=== PATIENT | female | born 1975 | race Caucasian/White ===

== ENCOUNTER 2017-10-14 12:28 | Emergency (ER) | payer OTHER ==
[2017-10-14 13:42] LABS: APPEARANCE, URINE CLOUDY (CLEAR); BACTERIA, URINE AUTO NEGATIVE (NEGATIVE); BILIRUBIN, URINE AUTO NEGATIVE (NEGATIVE); BLOOD, URINE BLOOD 3+ (NEGATIVE); CALCIUM OXALATE CRYSTALS SMALL; COLOR, URINE YELLOW (YELLOW); GLUCOSE, URINE (UA) AUTO NEGATIVE (NEGATIVE); KETONE, URINE AUTO 1+ mg/dL (NEGATIVE); LEUKOCYTE ESTERASE, URINE AUTO NEGATIVE (NEGATIVE); MUCUS, URINE LARGE (NEGATIVE); NITRITE, URINE AUTO NEGATIVE (NEGATIVE); PROTEIN, URINE AUTO 1+ mg/dL (NEGATIVE); RBC, URINE AUTO TNTC /HPF (0-3); SPECIFIC GRAVITY URINE AUTO 1.026 (1.002-1.035); SQUAMOUS EPITHELIAL CELL UR AU 5 /HPF (0-6); WBC, URINE AUTO 12 /HPF (0-3)
[2017-10-14] MEDS: ONDANSETRON 4MG/2ML VIAL (J2405) IV (13:43)
[2017-10-14] MEDS: KETOROLAC 30 MG/ML VIAL (J1885) IV (13:44)
[2017-10-14] MEDS: NS 1,000 ML IV (13:44)
[2017-10-14 13:51] LABS: HEMATOCRIT 45.6 % (36.0-47.0); HEMOGLOBIN 14.6 g/dl (12.0-15.5); MEAN CORPUSCULAR HEMOGLOBIN 29.6 pg (27.0-33.0); MEAN CORPUSCULAR VOLUME 92.3 fl (80.0-96.0); PLATELET COUNT, AUTOMATED 204 10^3/uL (150-450); RED BLOOD COUNT 4.94 10^6/uL (4.00-5.40); RED CELL DISTRIBUTION WIDTH 14.4 % (11.5-14.5); WHITE BLOOD COUNT 10.5 10^3/uL (4.0-10.0)
[2017-10-14 14:16] LABS: CONTROL LINE HCG INT CTR LINE PRESENT; HCG, SERUM QUALITATIVE NEGATIVE (NEGATIVE)
[2017-10-14 14:25] LABS: ALBUMIN/GLOBULIN RATIO 0.98 (1.00-1.93); ALKALINE PHOSPHATASE 67 U/L (45-117); ALT/SGPT 21 U/L (12-78); ANION GAP 10 MEQ/L (8-16); AST/SGOT 12 U/L (7-37); BILIRUBIN,DIRECT 0.2 MG/DL (0.0-0.2); BILIRUBIN,TOTAL 0.9 MG/DL (0.2-1.0); BLOOD UREA NITROGEN 14 MG/DL (7-18); CARBON DIOXIDE LEVEL 25 MEQ/L (21-32); CHLORIDE LEVEL 109 MEQ/L (98-107); CREATININE FOR GFR 0.99 MG/DL (0.55-1.30); GLOMERULAR FILTRATION RATE > 60.0 (>58); GLUCOSE, FASTING 139 MG/DL (70-100); SODIUM LEVEL 144 MEQ/L (136-145); TOTAL PROTEIN 8.1 GM/DL (6.4-8.2)
== END 2017-10-14 15:31 | disposition home or self-care (01) ==
LOC: M ED 12:28
DX: R10.31 Right lower quadrant pain (principal); Z87.442 Personal history of urinary calculi; Z88.0 Allergy status to penicillin
CPT/HCPCS: J2405

== ENCOUNTER 2018-01-29 20:47 | Emergency (ER) | payer OTHER, SELFPAY ==
[~2018-01-29] VITALS: Ht 167.6 cm; Wt 86.4 kg
[2018-01-29] MEDS ORDERED: BACTRIM 160MG/800MG DS TAB PO ONE (22:15)
[2018-01-29] MEDS ORDERED: NS 1,000 ML IV SCH (22:15)
[2018-01-29] MEDS ORDERED: KETOROLAC 30 MG/ML VIAL (J1885) IV ONE (22:15)
[2018-01-29] MEDS ORDERED: METOCLOPRAMIDE INJ 10MG/2ML VIAL (J2765) IV ONE (22:15)
[2018-01-29 22:38] LABS: BASO % 0.4 % (0.0-1.0); EOS # 0.3 10^3/uL (0.0-0.50); EOS % 2.6 % (0.0-3.0); HEMATOCRIT 42.1 % (36.0-47.0); HEMOGLOBIN 13.3 g/dl (12.0-15.5); LYMPH # 4.5 10^3/uL (1.5-4.5); LYMPH % 40.6 % (24.0-44.0); MEAN CORPUSCULAR HEMOGLOBIN 28.5 pg (27.0-33.0); MEAN CORPUSCULAR HGB CONC 31.6 g/dl (32.0-36.5); MEAN CORPUSCULAR VOLUME 90.1 fl (80.0-96.0); MONO # 0.7 10^3/uL (0.0-0.8); MONO % 6.8 % (0.0-5.0); NEUTROPHILS # 5.4 10^3/uL (1.8-7.7); NEUTROPHILS % 49.3 % (36.0-66.0); PLATELET COUNT, AUTOMATED 259 10^3/uL (150-450); RED BLOOD COUNT 4.67 10^6/uL (4.00-5.40)
[2018-01-29 23:08] LABS: BLOOD UREA NITROGEN 13 MG/DL (7-18); C REACTIVE PROTEIN QUANTITATIV < 0.30 MG/DL (0.00-0.30); CALCIUM LEVEL 8.5 MG/DL (8.5-10.1); CARBON DIOXIDE LEVEL 27 MEQ/L (21-32); CHLORIDE LEVEL 111 MEQ/L (98-107); CREATININE FOR GFR 0.66 MG/DL (0.55-1.30); GLOMERULAR FILTRATION RATE > 60.0 (>58); GLUCOSE, FASTING 117 MG/DL (70-100); POTASSIUM SERUM 3.8 MEQ/L (3.5-5.1); SODIUM LEVEL 145 MEQ/L (136-145)
[2018-01-29 23:37] LABS: ERYTHROCYTE SEDIMENTATION RATE 13 mm/hr (0-20)
[2018-01-29] MEDS ORDERED: BACT800T5 PO (23:48)
[2018-01-30 00:26] VITALS: BP 140/87
== END 2018-01-30 00:28 | disposition home or self-care (01) ==
LOC: M ED 20:47
DX: S31.809A Unspecified open wound of unspecified buttock, initial encounter (principal); R22.9 Localized swelling, mass and lump, unspecified; H00.011 Hordeolum externum right upper eyelid; X58.XXXA Exposure to other specified factors, initial encounter; Y92.9 Unspecified place or not applicable; Y93.9 Activity, unspecified; Y99.9 Unspecified external cause status; Z87.442 Personal history of urinary calculi; Z72.0 Tobacco use; Z88.0 Allergy status to penicillin
CPT/HCPCS: 80048; 85025; 85652; 86140; 87040; 96361; 96374; 96375; 99283; J1885; J2765

== ENCOUNTER 2018-04-02 16:49 | Emergency (ER) | payer SELFPAY ==
[~2018-04-02] VITALS: Ht 167.6 cm; Wt 90.9 kg
[~2018-04-02 16:49] MED LIST: BACT800T5 PO
[2018-04-02] MEDS ORDERED: IBUP-1022 PO (16:54)
[2018-04-02] MEDS ORDERED: MUCI120T PO (16:54)
[2018-04-02 17:23] VITALS: BP 120/68
[2018-04-02 17:44] LABS: INFLUENZA A AMPLIFICATION NEGATIVE (NEGATIVE); INFLUENZA B AMPLIFICATION NEGATIVE (NEGATIVE)
[2018-04-02] MEDS ORDERED: ZYRT10CA PO (17:44)
[2018-04-02] MEDS ORDERED: FLON1SPR NARES (17:44)
== END 2018-04-02 17:49 | disposition home or self-care (01) ==
LOC: M ED 16:49
DX: J30.9 Allergic rhinitis, unspecified (principal); Z72.0 Tobacco use; Z88.0 Allergy status to penicillin

== ENCOUNTER 2018-09-03 16:58 | Emergency (ER) | payer OTHER, SELFPAY ==
[~2018-09-03] VITALS: Ht 167.6 cm; Wt 86.4 kg
[~2018-09-03 16:58] MED LIST changes: +FLON1SPR NARES; +IBUP-1022 PO; +MUCI120T PO; +ZYRT10CA PO
[2018-09-03 17:39] LABS: BASO % 0.5 % (0.0-1.0); EOS # 0.1 10^3/uL (0.0-0.50); EOS % 1.5 % (0.0-3.0); HEMATOCRIT 41.7 % (36.0-47.0); HEMOGLOBIN 13.1 g/dl (12.0-15.5); LYMPH # 2.5 10^3/uL (1.5-4.5); LYMPH % 28.4 % (24.0-44.0); MEAN CORPUSCULAR HEMOGLOBIN 26.4 pg (27.0-33.0); MEAN CORPUSCULAR HGB CONC 31.4 g/dl (32.0-36.5); MEAN CORPUSCULAR VOLUME 83.9 fl (80.0-96.0); MONO # 0.6 10^3/uL (0.0-0.8); MONO % 6.8 % (0.0-5.0); NEUTROPHILS # 5.4 10^3/uL (1.8-7.7); NEUTROPHILS % 62.6 % (36.0-66.0); PLATELET COUNT, AUTOMATED 273 10^3/uL (150-450); RED BLOOD COUNT 4.97 10^6/uL (4.00-5.40); WHITE BLOOD COUNT 8.7 10^3/uL (4.0-10.0)
[2018-09-03] MEDS ORDERED: KETOROLAC 30 MG/ML VIAL (J1885) IV ONE (17:45)
[2018-09-03] MEDS ORDERED: NS 1,000 ML IV ONE (17:45)
[2018-09-03] MEDS ORDERED: ONDANSETRON 4MG/2ML VIAL (J2405) IV ONE (17:45)
[2018-09-03 17:53] LABS: ALBUMIN 3.8 GM/DL (3.2-5.2); BILIRUBIN,DIRECT 0.2 MG/DL (0.0-0.2); BILIRUBIN,TOTAL 0.7 MG/DL (0.2-1.0); TOTAL PROTEIN 7.8 GM/DL (6.4-8.2)
--- NOTE | 2018-09-03 21:53 | REPVR ---
EXAM: CT Abdomen and Pelvis Without Contrast EXAM DATE/TIME: 09/03/2018 8:23 PM CLINICAL HISTORY: 42 years old, female; Abdominal pain; Flank; Left; Additional info: Left flank pain TECHNIQUE: Imaging protocol: Axial computed tomography images of the abdomen and pelvis without contrast. Coronal and sagittal reformatted images were created and reviewed. Radiation optimization: All CT scans at this facility use at least one of these dose optimization techniques: automated exposure control; mA and/or kV adjustment per patient size (includes targeted exams where dose is matched to clinical indication); or iterative reconstruction. COMPARISON: CT ABD PELVIS W/O CONTRAST 10/14/2017 2:16 PM FINDINGS: Lungs: Calcified granulomas within the right lower lobe. Liver: Punctate calcification within the liver on image 27 of series 201 is likely a calcified granuloma. The liver is otherwise unremarkable. Gallbladder and bile ducts: Normal. No calcified stones. No ductal dilation. Pancreas: Unremarkable. No ductal dilation. Spleen: Calcified granulomas within the spleen. Adrenals: Normal. No mass. Kidneys and ureters: There are 2 nonobstructing punctate stones in the left kidney upper pole. There is a stone measuring 3 mm within the left proximal ureter (coronal reformatted image 50, and axial image 76). There is mild left hydronephrosis. A right renal cyst measuring approximately 4 cm in diameter is unchanged compared to the prior exam. No right renal stone or hydronephrosis. Stomach and bowel: Unremarkable. No obstruction. No mucosal thickening. Appendix: No evidence of appendicitis. Intraperitoneal space: No free air. No significant fluid collection. Vasculature: Unremarkable. No abdominal aortic aneurysm. Lymph nodes: No enlarged lymph nodes. Bladder: Unremarkable as visualized. Reproductive: Unremarkable as visualized. Bones/joints: There are degenerative changes within both hip joints. Soft tissues: Unremarkable. IMPRESSION: 1. Left nephrolithiasis. 2. 3 mm stone in the left proximal ureter, resulting in mild left hydronephrosis. 3. Right renal cyst. 4. Evidence of prior granulomatous disease. Electronically signed by: Carlyle Daniel On 09/03/2018 21:52:26 PM
[2018-09-03] MEDS ORDERED: ZOFR4TAB16 PO ×2 (23:07→23:10)
[2018-09-03] MEDS ORDERED: FLOM0.4C39 PO ×2 (23:07→23:10)
[2018-09-03] MEDS ORDERED: KETO10TAB PO ×2 (23:07→23:10)
[2018-09-03] MEDS ORDERED: NORCO 5/325MG TABLET (BULK FOR ED) PO ONE (23:15)
[2018-09-03 23:27] VITALS: BP 116/54
== END 2018-09-03 23:34 | disposition home or self-care (01) ==
LOC: M ED 16:58
DX: N20.1 Calculus of ureter (principal); F41.9 Anxiety disorder, unspecified; Z88.0 Allergy status to penicillin; F17.210 Nicotine dependence, cigarettes, uncomplicated
CPT/HCPCS: 74176; 80047; 80076; 81001; 83690; 84702; 85025; 96374; 96375; 99284; J1885; J2405